=== PATIENT | male | born 1955 | race African-American/Black ===

== ENCOUNTER 2022-02-18 13:49 | Emergency (ER) | payer OTHER ==
[2022-02-18 14:29] VITALS: BP 131/79; PULSE 82; RESP 18; TEMP 99.9; BMI 33.0
== END 2022-02-18 16:48 | disposition home or self-care (01) ==
LOC: JER 13:49
DX: U07.1 COVID-19 (principal)
CPT/HCPCS: 0241U-QW; 99283-25

== ENCOUNTER 2022-03-06 15:54 | Emergency (ER) | payer OTHER ==
[2022-03-06 16:05] VITALS: BP 144/81; PULSE 78; RESP 18; TEMP 98.1; BMI 31.6
== END 2022-03-06 16:50 | disposition home or self-care (01) ==
LOC: JERFT 15:54
DX: I10 Essential (primary) hypertension (principal); Z76.0 Encounter for issue of repeat prescription
CPT/HCPCS: 99281-25

== ENCOUNTER 2022-03-30 20:51 | Observation (INO) | payer OTHER ==
[2022-03-30 20:57] VITALS: BMI 31.6
[2022-03-30] MEDS ORDERED: FAMOTIDINE 20 MG/50 ML IVPB 20 MG/50 ML MG IVPB ONE ×2 (22:15→22:31)
[2022-03-30] MEDS ORDERED: MAG HYDROX/AL HYDROX/SIMETH 30 ML UNIT-DOSE CUP PO ONE (22:15)
[2022-03-30] MEDS ORDERED: MAG HYDROX/AL HYDROX/SIMETH 30 ML UNIT-DOSE CUP ONE (22:31)
[2022-03-30 22:38] LABS: BASO % 0.6 % (0-2.0); EOS % 3.7 % (0-4.5); HEMATOCRIT 42.3 % (35.4-49); HEMOGLOBIN 14.3 GM/dL (11.7-16.9); LYMPH % 50.6 % (8-40); MCH 30.6 pg (25.7-33.7); MCHC 33.7 g/dl (32.0-35.9); MEAN CELL VOLUME 90.7 fl (80-96); MEAN PLT VOLUME 7.2 fl (7.5-11.1); MONO % 9.6 % (3.8-10.2); NEUT % 35.5 % (42.8-82.8); PLATELET COUNT 261 10^3/uL (134-434); RBC 4.67 M/mm3 (4.00-5.60); RDW 14.4 % (11.9-15.9)
[2022-03-30 22:54] LABS: INR 1.03 (0.83-1.09)
[2022-03-30 22:57] LABS: ACTIVATED PTT 27.3 SECONDS (25.2-36.5); CHLORIDE 104 mmol/L (98-107); SODIUM 138 mmol/L (136-145)
[2022-03-30 22:59] LABS: ALBUMIN 3.6 g/dl (3.4-5.0); BLOOD UREA NITROGEN 9.2 mg/dL (7-18); CALCIUM 9.8 mg/dL (8.5-10.1); GLUCOSE,RANDOM 79 mg/dL (74-106)
[2022-03-30 23:00] LABS: ANION GAP 5 MMOL/L (8-16); CO2 29 mmol/L (21-32); LIPASE 114 U/L (73-393); MAGNESIUM 2.2 mg/dL (1.8-2.4)
[2022-03-30 23:02] LABS: CREATININE 1.1 mg/dL (0.55-1.3); SGPT/ALT 30 U/L (13-61)
[2022-03-30 23:03] LABS: SGOT/AST 22 U/L (15-37)
[2022-03-30 23:04] LABS: BILIRUBIN,TOTAL 1.2 mg/dL (0.2-1)
[2022-03-30 23:05] LABS: ALK PHOS 58 U/L (45-117)
[2022-03-30] MEDS ORDERED: ASPIRIN 81 MG CHEWABLE TABLETS PO ONE (23:10)
[2022-03-30] MEDS ORDERED: ASPIRIN 81 MG CHEWABLE TABLETS ONE (23:30)
[2022-03-31] MEDS ORDERED: FAMOTIDINE 20 MG TABLET ONE (09:51)
[2022-03-31] MEDS ORDERED: HYDROCHLOROTHIAZIDE 25 MG TABLET (FP) ONE (09:51)
[2022-03-31] MEDS ORDERED: LISINOPRIL 20 MG TABLET ONE (09:51)
[2022-03-31] MEDS ORDERED: ASPIRIN 81 MG CHEWABLE TABLETS ONE (09:52)
[2022-03-31] MEDS ORDERED: HYDROCHLOROTHIAZIDE 12.5 MG CAPSULE (FP) PO SCH (10:00)
[2022-03-31] MEDS ORDERED: FAMOTIDINE 20 MG TABLET PO SCH (10:00)
[2022-03-31] MEDS ORDERED: LISINOPRIL 20 MG TABLET PO SCH (10:00)
[2022-03-31] MEDS ORDERED: ASPIRIN 81 MG CHEWABLE TABLETS PO SCH (10:00)
[2022-03-31 11:08] VITALS: TEMP 97.5
[2022-03-31] MEDS ORDERED: HEPARIN NA (PORCINE) 5,000 UNITS/ML 1ML VIAL SQ SCH (14:00)
[2022-03-31] MEDS ORDERED: HEPARIN NA (PORCINE) 5,000 UNITS/ML 1ML VIAL ONE (14:23)
[2022-03-31 18:23] VITALS: BP 144/88; PULSE 63; RESP 18
[2022-03-31] MEDS ORDERED: ATORVASTATIN CA 40 MG TABLET (FP) PO SCH (22:00)
== END 2022-03-31 18:23 | disposition home or self-care (01) ==
LOC: JER 20:51 → JERBED 03-31 00:37
PROVIDERS: ADMIT Internal Medicine; ATTEND Internal Medicine
PROC: 3E033GC Introduction of Other Therapeutic Substance into Peripheral Vein, Percutaneous Approach (ICD-10-PCS; principal; 2022-03-31)
PROC: 3E023GC Introduction of Other Therapeutic Substance into Muscle, Percutaneous Approach (ICD-10-PCS; 2022-03-31)
DX: I25.10 Atherosclerotic heart disease of native coronary artery without angina pectoris (principal); R77.8 Other specified abnormalities of plasma proteins; I11.9 Hypertensive heart disease without heart failure; Z86.16 Personal history of COVID-19; E78.5 Hyperlipidemia, unspecified; R07.89 Other chest pain
CPT/HCPCS: 0241U-QW; 36415; 71046-TC-FY; 80053; 83690; 83735; 84436; 84443; 84484; 85025; 85610; 85730; 93005; 93010; 93306-TC; 96365; 96372; 99285-25; G0378; J1644

== ENCOUNTER 2022-04-16 03:12 | Emergency (ER) | payer OTHER ==
[2022-04-16 03:28] VITALS: BP 139/85; PULSE 81; RESP 20; TEMP 98.1; BMI 30.3
== END 2022-04-16 04:03 | disposition home or self-care (01) ==
LOC: JER 03:12
DX: I10 Essential (primary) hypertension (principal); Z76.0 Encounter for issue of repeat prescription
CPT/HCPCS: 99281-25

== ENCOUNTER 2022-05-25 20:33 | Observation (INO) | payer OTHER ==
[2022-05-25 20:57] VITALS: BMI 32.3
[2022-05-25 21:44] LABS: BASO % 0.6 % (0-2.0); EOS % 3.7 % (0-4.5); HEMATOCRIT 43.9 % (35.4-49); LYMPH % 47.2 % (8-40); MCH 30.2 pg (25.7-33.7); MCHC 34.2 g/dl (32.0-35.9); MEAN CELL VOLUME 88.4 fl (80-96); MEAN PLT VOLUME 7.3 fl (7.5-11.1); MONO % 5.8 % (3.8-10.2); NEUT % 42.7 % (42.8-82.8); PLATELET COUNT 232 10^3/uL (134-434); RBC 4.96 M/mm3 (4.00-5.60); RDW 14.1 % (11.9-15.9); WHITE BLOOD COUNT 5.9 K/mm3 (4.0-10.0)
[2022-05-25 21:50] LABS: PROTHROMBIN TIME (PATIENT) 11.6 SEC (9.7-13.0)
[2022-05-25 22:05] LABS: ALBUMIN 3.7 g/dl (3.4-5.0); BLOOD UREA NITROGEN 13.7 mg/dL (7-18); CALCIUM 9.6 mg/dL (8.5-10.1)
[2022-05-25 22:08] LABS: CREATININE 1.1 mg/dL (0.55-1.3)
[2022-05-25 22:10] LABS: BILIRUBIN,TOTAL 0.8 mg/dL (0.2-1); TOT PROT 7.3 g/dl (6.4-8.2)
[2022-05-25 22:13] LABS: N-TERMINAL BNP 47.2 pg/ml (5-125)
[2022-05-26 06:45] LABS: BASO % 0.9 % (0-2.0); EOS % 5.4 % (0-4.5); HEMATOCRIT 38.4 % (35.4-49); HEMOGLOBIN 13.7 GM/dL (11.7-16.9); LYMPH % 50.6 % (8-40); MCH 31.4 pg (25.7-33.7); MCHC 35.8 g/dl (32.0-35.9); MEAN CELL VOLUME 87.5 fl (80-96); MEAN PLT VOLUME 8.1 fl (7.5-11.1); MONO % 7.2 % (3.8-10.2); NEUT % 35.9 % (42.8-82.8); PLATELET COUNT 212 10^3/uL (134-434); RBC 4.38 M/mm3 (4.00-5.60); RDW 13.9 % (11.9-15.9); WHITE BLOOD COUNT 5.8 K/mm3 (4.0-10.0)
[2022-05-26 07:00] LABS: ALBUMIN 3.3 g/dl (3.4-5.0); BLOOD UREA NITROGEN 10.8 mg/dL (7-18); CALCIUM 9.3 mg/dL (8.5-10.1); MAGNESIUM 2.3 mg/dL (1.8-2.4)
[2022-05-26 07:03] LABS: CREATININE 0.9 mg/dL (0.55-1.3); PHOSPHOROUS 2.8 mg/dL (2.5-4.9)
[2022-05-26 07:04] LABS: BILIRUBIN,TOTAL 1.1 mg/dL (0.2-1); TOT PROT 6.5 g/dl (6.4-8.2)
[2022-05-26] MEDS ORDERED: ENOXAPARIN NA (PORCINE) 40 MG/0.4 ML DISP.SYRIN SQ ONE (08:51)
[2022-05-26] MEDS: ENOXAPARIN NA (PORCINE) 40 MG/0.4 ML DISP.SYRIN SQ SCH (08:54)
[2022-05-26 10:25] LABS: URINE APPEARANCE CLEAR; URINE BILIRUBIN NEGATIVE (NEGATIVE); URINE COLOR YELLOW; URINE GLUCOSE (UA) NEGATIVE (NEGATIVE); URINE KETONE NEGATIVE (NEGATIVE); URINE LEUK ESTERASE NEGATIVE (NEGATIVE); URINE NITRITE NEGATIVE (NEGATIVE); URINE PROTEIN NEGATIVE (NEGATIVE); URINE UROBILINOGEN 0.2 mg/dL (0.2-1.0)
[2022-05-26] MEDS ORDERED: ATORVASTATIN CA 80 MG TABLET (FP) PO ONE (11:08)
[2022-05-26] MEDS ORDERED: ATORVASTATIN CA 80 MG TABLET (FP) ONE (11:49)
[2022-05-26] MEDS ORDERED: ASPIRIN 81 MG CHEWABLE TABLETS ONE (11:49)
[2022-05-26] MEDS: ASPIRIN 81 MG CHEWABLE TABLETS PO SCH (11:54)
[2022-05-27] MEDS: ASPIRIN 81 MG CHEWABLE TABLETS PO SCH (09:01)
[2022-05-27] MEDS: ENOXAPARIN NA (PORCINE) 40 MG/0.4 ML DISP.SYRIN SQ SCH (09:01)
[2022-05-27] MEDS: CLOPIDOGREL BISULFATE 75 MG TABLET (FP) PO SCH (09:18)
[2022-05-27] MEDS: ATORVASTATIN CA 40 MG TABLET (FP) PO SCH (22:37)
[2022-05-28] MEDS: ASPIRIN 81 MG CHEWABLE TABLETS PO SCH (09:43)
[2022-05-28] MEDS: ENOXAPARIN NA (PORCINE) 40 MG/0.4 ML DISP.SYRIN SQ SCH (09:43)
[2022-05-28] MEDS: CLOPIDOGREL BISULFATE 75 MG TABLET (FP) PO SCH (09:43)
[2022-05-28] MEDS: FAMOTIDINE 20 MG TABLET PO SCH ×2 (15:01→22:16)
[2022-05-28] MEDS: ATORVASTATIN CA 40 MG TABLET (FP) PO SCH (22:16)
[2022-05-29 00:59] VITALS: RESP 20
[2022-05-29 08:20] LABS: HEMATOCRIT 37.5 % (35.4-49); HEMOGLOBIN 13.1 GM/dL (11.7-16.9); MCH 31.1 pg (25.7-33.7); MEAN CELL VOLUME 88.9 fl (80-96); MEAN PLT VOLUME 7.9 fl (7.5-11.1); PLATELET COUNT 221 10^3/uL (134-434); RBC 4.22 M/mm3 (4.00-5.60); WHITE BLOOD COUNT 5.8 K/mm3 (4.0-10.0)
[2022-05-29 08:47] LABS: ALBUMIN 2.9 g/dl (3.4-5.0); BLOOD UREA NITROGEN 11.5 mg/dL (7-18)
[2022-05-29 08:48] LABS: CALCIUM 8.7 mg/dL (8.5-10.1); MAGNESIUM 2.1 mg/dL (1.8-2.4)
[2022-05-29 08:50] LABS: CREATININE 1.1 mg/dL (0.55-1.3); PHOSPHOROUS 2.9 mg/dL (2.5-4.9)
[2022-05-29 08:52] LABS: BILIRUBIN,TOTAL 0.7 mg/dL (0.2-1); TOT PROT 6.1 g/dl (6.4-8.2)
[2022-05-29] MEDS: FAMOTIDINE 20 MG TABLET PO SCH (12:43)
[2022-05-29] MEDS: CLOPIDOGREL BISULFATE 75 MG TABLET (FP) PO SCH (12:43)
[2022-05-29] MEDS: ENOXAPARIN NA (PORCINE) 40 MG/0.4 ML DISP.SYRIN SQ SCH (12:43)
[2022-05-29] MEDS: ASPIRIN 81 MG CHEWABLE TABLETS PO SCH (12:43)
[2022-05-29 14:47] VITALS: BP 135/85; PULSE 65; TEMP 98.6
== END 2022-05-29 16:49 | disposition home or self-care (01) ==
LOC: JER 20:33 → JERBED 23:10 → J4W 05-26 23:25
PROVIDERS: ADMIT Internal Medicine; ATTEND Internal Medicine
PROC: 3E023GC Introduction of Other Therapeutic Substance into Muscle, Percutaneous Approach (ICD-10-PCS; principal; 2022-05-25)
DX: I25.10 Atherosclerotic heart disease of native coronary artery without angina pectoris (principal); I11.9 Hypertensive heart disease without heart failure; E78.5 Hyperlipidemia, unspecified; I10 Essential (primary) hypertension; E66.8 Other obesity; Z68.32 Body mass index [BMI] 32.0-32.9, adult; R77.8 Other specified abnormalities of plasma proteins; F12.10 Cannabis abuse, uncomplicated; Z86.16 Personal history of COVID-19
CPT/HCPCS: 0241U-QW; 36415; 71046-TC-FY; 78452-TC; 80053; 80061; 81003; 83735; 83880; 84100; 84443; 84484; 85025; 85027; 85610; 85730; 86850; 86900; 86901; 93005; 93010; 93017; 96372; 99285-25; A9502; G0378

== ENCOUNTER 2022-08-08 22:24 | Observation (INO) | payer OTHER ==
[2022-08-09 01:51] LABS: BASO % 0.9 % (0-2.0); EOS % 5.6 % (0-4.5); HEMATOCRIT 44.2 % (35.4-49); HEMOGLOBIN 15.2 GM/dL (11.7-16.9); MCH 30.5 pg (25.7-33.7); MCHC 34.5 g/dl (32.0-35.9); MEAN CELL VOLUME 88.5 fl (80-96); MEAN PLT VOLUME 7.2 fl (7.5-11.1); MONO % 6.5 % (3.8-10.2); PLATELET COUNT 226 10^3/uL (134-434); RBC 4.99 M/mm3 (4.00-5.60); RDW 13.8 % (11.9-15.9); WHITE BLOOD COUNT 6.9 K/mm3 (4.0-10.0)
[2022-08-09 01:59] LABS: INR 1.06 (0.83-1.09); PROTHROMBIN TIME (PATIENT) 12.3 SEC (9.7-13.0)
[2022-08-09 02:01] LABS: ACTIVATED PTT 27.2 SECONDS (25.2-36.5)
[2022-08-09 02:16] LABS: POTASSIUM 4.2 mmol/L (3.5-5.1)
[2022-08-09 02:18] LABS: BLOOD UREA NITROGEN 14.2 mg/dL (7-18); CALCIUM 9.6 mg/dL (8.5-10.1)
[2022-08-09 02:19] LABS: ALBUMIN 3.6 g/dl (3.4-5.0)
[2022-08-09 02:23] LABS: BILIRUBIN,TOTAL 0.9 mg/dL (0.2-1); TOT PROT 7.2 g/dl (6.4-8.2)
[2022-08-09 06:18] VITALS: PULSE 50; BMI 33.0
[2022-08-09 07:32] LABS: HEMATOCRIT 42.5 % (35.4-49); HEMOGLOBIN 14.3 GM/dL (11.7-16.9); MCH 30.6 pg (25.7-33.7); MCHC 33.7 g/dl (32.0-35.9); MEAN CELL VOLUME 90.8 fl (80-96); MEAN PLT VOLUME 7.7 fl (7.5-11.1); PLATELET COUNT 208 10^3/uL (134-434); RBC 4.67 M/mm3 (4.00-5.60); RDW 13.7 % (11.9-15.9); WHITE BLOOD COUNT 5.6 K/mm3 (4.0-10.0)
[2022-08-09 08:00] LABS: POTASSIUM 4.2 mmol/L (3.5-5.1)
[2022-08-09 08:02] LABS: CALCIUM 9.6 mg/dL (8.5-10.1)
[2022-08-09 08:03] LABS: ALBUMIN 3.4 g/dl (3.4-5.0); BLOOD UREA NITROGEN 12.7 mg/dL (7-18)
[2022-08-09 08:06] LABS: CREATININE 1.1 mg/dL (0.55-1.3)
[2022-08-09 08:07] LABS: TOT PROT 6.8 g/dl (6.4-8.2)
[2022-08-09 08:08] LABS: BILIRUBIN,TOTAL 0.9 mg/dL (0.2-1)
[2022-08-09] MEDS ORDERED: LISINOPRIL 20 MG TABLET PO SCH (10:00)
[2022-08-09] MEDS ORDERED: ENOXAPARIN NA (PORCINE) 40 MG/0.4 ML DISP.SYRIN SQ SCH (10:00)
[2022-08-09] MEDS ORDERED: HYDROCHLOROTHIAZIDE 12.5 MG CAPSULE (FP) PO SCH (10:00)
[2022-08-09] MEDS ORDERED: PANTOPRAZOLE SODIUM 40 MG VIAL IVPUSH SCH (10:00)
[2022-08-09] MEDS ORDERED: ASPIRIN COATED 81 MG TABLET.EC PO SCH (10:00)
[2022-08-09 10:29] VITALS: BP 127/72; RESP 20; TEMP 97.3
[2022-08-09] MEDS ORDERED: ATORVASTATIN CA 40 MG TABLET (FP) PO SCH (22:00)
== END 2022-08-09 15:50 | disposition home or self-care (01) ==
LOC: JER 22:24 → INTOOBSV 08-09 02:46 → UNDOADMOB 08-09 02:46 → JERBED 08-09 02:46 → J4W 08-09 05:31 → JERBED 08-09 05:31 → J4W 08-09 09:28 → JERBED 08-09 09:28
PROVIDERS: ADMIT Internal Medicine; ATTEND Internal Medicine
PROC: 3E023GC Introduction of Other Therapeutic Substance into Muscle, Percutaneous Approach (ICD-10-PCS; principal; 2022-08-09)
PROC: 3E033GC Introduction of Other Therapeutic Substance into Peripheral Vein, Percutaneous Approach (ICD-10-PCS; 2022-08-09)
DX: I25.811 Atherosclerosis of native coronary artery of transplanted heart without angina pectoris (principal); I11.9 Hypertensive heart disease without heart failure; R07.9 Chest pain, unspecified; K21.9 Gastro-esophageal reflux disease without esophagitis; I10 Essential (primary) hypertension; E78.5 Hyperlipidemia, unspecified; Z29.8 Encounter for other specified prophylactic measures
CPT/HCPCS: 36415; 71045-TC-FY; 80053; 84484; 85025; 85027; 85610; 85730; 93005; 93010; 96372; 96374; 99285-25; G0378

== ENCOUNTER 2022-09-29 00:45 | Observation (INO) | payer OTHER ==
[2022-09-29] MEDS ORDERED: ACETAMINOPHEN 1000 MG/100 ML BAG IVPB ONE (01:42)
[2022-09-29] MEDS ORDERED: KETOROLAC TROMETHAMINE 15 MG/ML VIAL IVPUSH ONE (01:43)
[2022-09-29] MEDS ORDERED: KETOROLAC TROMETHAMINE 15 MG/ML VIAL ONE (01:57)
[2022-09-29] MEDS ORDERED: ACETAMINOPHEN INJECTION 100 ML IVPB ONE (01:57)
[2022-09-29 02:16] LABS: HEMOGLOBIN 14.9 GM/dL (11.7-16.9); MCH 30.7 pg (25.7-33.7); MCHC 34.6 g/dl (32.0-35.9); MEAN CELL VOLUME 88.7 fl (80-96); PLATELET COUNT 218 10^3/uL (134-434); RBC 4.85 M/mm3 (4.00-5.60); WHITE BLOOD COUNT 8.3 K/mm3 (4.0-10.0)
[2022-09-29 02:24] LABS: INR 1.05 (0.83-1.09); PROTHROMBIN TIME (PATIENT) 12.2 SEC (9.7-13.0)
[2022-09-29 02:26] LABS: ACTIVATED PTT 27.8 SECONDS (25.2-36.5)
[2022-09-29 02:45] LABS: POTASSIUM 4.1 mmol/L (3.5-5.1)
[2022-09-29 02:47] LABS: ALBUMIN 3.7 g/dl (3.4-5.0); CALCIUM 9.6 mg/dL (8.5-10.1)
[2022-09-29 02:50] LABS: CREATININE 1.4 mg/dL (0.55-1.3)
[2022-09-29 02:52] LABS: TOT PROT 6.9 g/dl (6.4-8.2)
[2022-09-29 03:05] LABS: ANISOCYTOSIS 1+; MACROCYTOSIS 0
[2022-09-29] MEDS ORDERED: HEPARIN NA (PORCINE) 5,000 UNITS/ML 1ML VIAL SQ ONE (06:23)
[2022-09-29] MEDS ORDERED: SODIUM CHLORIDE 1,000 ML IV SCH (06:45)
[2022-09-29 06:51] VITALS: BMI 33.4
[2022-09-29] MEDS ORDERED: CLOPIDOGREL BISULFATE 300 MG TABLET PO ONE (08:15)
[2022-09-29] MEDS: amLODIPine BESYLATE 5 MG TABLET (FP) PO SCH (09:29)
[2022-09-29] MEDS: ASPIRIN COATED 81 MG TABLET.EC PO SCH (09:29)
[2022-09-29] MEDS: ISOSORBIDE MONONITRATE 30 MG TAB.SR.24H (FP) PO SCH (09:29)
[2022-09-29] MEDS: LISINOPRIL 20 MG TABLET PO SCH (09:29)
[2022-09-29] MEDS ORDERED: CLOPIDOGREL BISULFATE 75 MG TABLET (FP) PO SCH (10:00)
[2022-09-29] MEDS: ATORVASTATIN CA 40 MG TABLET (FP) PO SCH (21:59)
[2022-09-30 08:14] LABS: HEMATOCRIT 40.2 % (35.4-49); HEMOGLOBIN 13.5 GM/dL (11.7-16.9); MCH 30.4 pg (25.7-33.7); MCHC 33.7 g/dl (32.0-35.9); MEAN CELL VOLUME 90.2 fl (80-96); MEAN PLT VOLUME 8.1 fl (7.5-11.1); PLATELET COUNT 206 10^3/uL (134-434); RBC 4.46 M/mm3 (4.00-5.60); RDW 13.6 % (11.9-15.9); WHITE BLOOD COUNT 5.7 K/mm3 (4.0-10.0)
[2022-09-30 08:36] LABS: POTASSIUM 4.2 mmol/L (3.5-5.1)
[2022-09-30 08:43] LABS: CALCIUM 8.9 mg/dL (8.5-10.1)
[2022-09-30 08:44] LABS: ALBUMIN 3.2 g/dl (3.4-5.0); BLOOD UREA NITROGEN 15.1 mg/dL (7-18); MAGNESIUM 2.2 mg/dL (1.8-2.4)
[2022-09-30 08:45] LABS: CREATININE 1.1 mg/dL (0.55-1.3); PHOSPHOROUS 3.5 mg/dL (2.5-4.9)
[2022-09-30 08:46] LABS: BILIRUBIN,TOTAL 0.7 mg/dL (0.2-1); TOT PROT 6.4 g/dl (6.4-8.2)
[2022-09-30] MEDS: CLOPIDOGREL BISULFATE 75 MG TABLET (FP) PO SCH (09:27)
[2022-09-30] MEDS: ISOSORBIDE MONONITRATE 30 MG TAB.SR.24H (FP) PO SCH (09:27)
[2022-09-30] MEDS: amLODIPine BESYLATE 5 MG TABLET (FP) PO SCH (09:28)
[2022-09-30] MEDS: ASPIRIN COATED 81 MG TABLET.EC PO SCH (09:28)
[2022-09-30] MEDS: LISINOPRIL 20 MG TABLET PO SCH (09:28)
[2022-09-30 13:19] LABS: PH,URINE 5.5 (5.0-8.0); URINE APPEARANCE CLEAR; URINE BILIRUBIN NEGATIVE (NEGATIVE); URINE COLOR YELLOW; URINE GLUCOSE (UA) NEGATIVE (NEGATIVE); URINE KETONE NEGATIVE (NEGATIVE); URINE LEUK ESTERASE NEGATIVE (NEGATIVE); URINE NITRITE NEGATIVE (NEGATIVE); URINE PROTEIN NEGATIVE (NEGATIVE); URINE UROBILINOGEN 0.2 mg/dL (0.2-1.0)
[2022-09-30] MEDS: ATORVASTATIN CA 40 MG TABLET (FP) PO SCH (21:36)
[2022-10-01] MEDS: CLOPIDOGREL BISULFATE 75 MG TABLET (FP) PO SCH (09:25)
[2022-10-01] MEDS: ISOSORBIDE MONONITRATE 30 MG TAB.SR.24H (FP) PO SCH (09:26)
[2022-10-01] MEDS: amLODIPine BESYLATE 5 MG TABLET (FP) PO SCH (09:26)
[2022-10-01] MEDS: ASPIRIN COATED 81 MG TABLET.EC PO SCH (09:27)
[2022-10-01] MEDS: LISINOPRIL 20 MG TABLET PO SCH (09:28)
[2022-10-01] MEDS: ATORVASTATIN CA 40 MG TABLET (FP) PO SCH (21:05)
[2022-10-01 21:20] VITALS: BP 143/83; PULSE 82; RESP 18; TEMP 98
== END 2022-10-01 21:30 | disposition short-term general hospital (02) ==
LOC: JER 00:45 → JERBED 03:49 → J4W 06:42
PROVIDERS: ADMIT Student in an Organized Health Care Education/Training Program; ATTEND Internal Medicine
PROC: 3E033NZ Introduction of Analgesics, Hypnotics, Sedatives into Peripheral Vein, Percutaneous Approach (ICD-10-PCS; principal; 2022-09-29)
PROC: 3E023GC Introduction of Other Therapeutic Substance into Muscle, Percutaneous Approach (ICD-10-PCS; 2022-09-29)
PROC: 3E0333Z Introduction of Anti-inflammatory into Peripheral Vein, Percutaneous Approach (ICD-10-PCS; 2022-09-29)
PROC: 3E0337Z Introduction of Electrolytic and Water Balance Substance into Peripheral Vein, Percutaneous Approach (ICD-10-PCS; 2022-09-29)
DX: R07.89 Other chest pain (principal); I25.10 Atherosclerotic heart disease of native coronary artery without angina pectoris; I10 Essential (primary) hypertension; E78.5 Hyperlipidemia, unspecified; R00.1 Bradycardia, unspecified; Z87.891 Personal history of nicotine dependence; R77.8 Other specified abnormalities of plasma proteins; Z95.5 Presence of coronary angioplasty implant and graft; F12.10 Cannabis abuse, uncomplicated; E66.8 Other obesity; Z68.33 Body mass index [BMI] 33.0-33.9, adult
CPT/HCPCS: 36415; 71045-TC-FY; 80053; 81003; 83735; 84100; 84484; 85025; 85027; 85610; 85730; 87635; 93005; 93010; 96361; 96372; 96374; 96375; 99285-25; G0378; J1644

== ENCOUNTER 2023-01-01 03:55 | Observation (INO) | payer OTHER ==
[2023-01-01 04:06] VITALS: BMI 32.7
[2023-01-01] MEDS ORDERED: ACETAMINOPHEN 1000 MG/100 ML BAG IVPB ONE (04:32)
[2023-01-01 04:40] LABS: EOS % 6.3 % (0-4.5); HEMATOCRIT 42.8 % (35.4-49); HEMOGLOBIN 14.6 GM/dL (11.7-16.9); LYMPH % 52.7 % (8-40); MCH 30.5 pg (25.7-33.7); MCHC 34.3 g/dl (32.0-35.9); MEAN CELL VOLUME 89.1 fl (80-96); MEAN PLT VOLUME 7.1 fl (7.5-11.1); MONO % 6.8 % (3.8-10.2); NEUT % 33.2 % (42.8-82.8); PLATELET COUNT 246 10^3/uL (134-434); RDW 14.3 % (11.9-15.9); WHITE BLOOD COUNT 6.7 K/mm3 (4.0-10.0)
[2023-01-01 04:46] LABS: INR 1.03 (0.83-1.09); PROTHROMBIN TIME (PATIENT) 11.9 SEC (9.7-13.0)
[2023-01-01 04:49] LABS: ACTIVATED PTT 28.6 SECONDS (25.2-36.5)
[2023-01-01] MEDS ORDERED: ACETAMINOPHEN INJECTION 100 ML IVPB ONE (04:57)
[2023-01-01 05:28] LABS: POTASSIUM 3.8 mmol/L (3.5-5.1)
[2023-01-01 05:30] LABS: ALBUMIN 3.6 g/dl (3.4-5.0); BLOOD UREA NITROGEN 14.2 mg/dL (7-18); CALCIUM 9.5 mg/dL (8.5-10.1)
[2023-01-01 05:33] LABS: CREATININE 1.1 mg/dL (0.55-1.3)
[2023-01-01 05:35] LABS: TOT PROT 7.2 g/dl (6.4-8.2)
[2023-01-01] MEDS ORDERED: ENOXAPARIN NA (PORCINE) 40 MG/0.4 ML DISP.SYRIN SQ SCH (10:00)
[2023-01-01] MEDS ORDERED: ENOXAPARIN NA (PORCINE) 40 MG/0.4 ML DISP.SYRIN SQ ONE (10:20)
[2023-01-01] MEDS ORDERED: ACETAMINOPHEN 1000 MG/100 ML BAG IVPB PRN (10:31)
[2023-01-01 10:36] VITALS: BP 122/87; PULSE 56; RESP 14; TEMP 97.9
[2023-01-01] MEDS ORDERED: LISINOPRIL 20 MG TABLET PO SCH (10:45)
[2023-01-01] MEDS ORDERED: amLODIPine BESYLATE 5 MG TABLET (FP) PO SCH (10:45)
[2023-01-01] MEDS ORDERED: SODIUM CHLORIDE 1,000 ML IV SCH (10:45)
[2023-01-01] MEDS ORDERED: amLODIPine BESYLATE 5 MG TABLET (FP) ONE (11:01)
[2023-01-01] MEDS ORDERED: LISINOPRIL 20 MG TABLET ONE (11:02)
[2023-01-01] MEDS ORDERED: LIDOCAINE 4% PATCH TP ONE ×2 (11:41→12:30)
[2023-01-01] MEDS ORDERED: FAMOTIDINE 20 MG TABLET PO SCH (12:00)
[2023-01-01] MEDS ORDERED: ISOSORBIDE MONONITRATE 30 MG TAB.SR.24H (FP) PO SCH (13:30)
[2023-01-01] MEDS ORDERED: ATORVASTATIN CA 80 MG TABLET (FP) PO SCH (22:00)
[2023-01-01] MEDS ORDERED: ATORVASTATIN CA 40 MG TABLET (FP) PO SCH (22:00)
[2023-01-01] MEDS ORDERED: LIDOCAINE PATCH REMOVAL MC SCH (22:00)
[2023-01-02] MEDS ORDERED: ASPIRIN COATED 81 MG TABLET.EC PO SCH (10:00)
== END 2023-01-01 14:22 | disposition home or self-care (01) ==
LOC: JER 03:55 → JERBED 06:27
PROVIDERS: ADMIT Internal Medicine; ATTEND Internal Medicine
PROC: 3E033NZ Introduction of Analgesics, Hypnotics, Sedatives into Peripheral Vein, Percutaneous Approach (ICD-10-PCS; principal; 2023-01-01)
PROC: 3E023GC Introduction of Other Therapeutic Substance into Muscle, Percutaneous Approach (ICD-10-PCS; 2023-01-01)
DX: I24.9 Acute ischemic heart disease, unspecified (principal); R07.9 Chest pain, unspecified; I25.10 Atherosclerotic heart disease of native coronary artery without angina pectoris; I11.0 Hypertensive heart disease with heart failure; E78.5 Hyperlipidemia, unspecified; E66.9 Obesity, unspecified
CPT/HCPCS: 36415; 71046-TC-FY; 80053; 80061; 83036; 84484; 85025; 85610; 85730; 93005; 93010; 96372; 96374; 99285-25; G0378

== ENCOUNTER 2023-02-17 21:17 | Observation (INO) | payer OTHER ==
[2023-02-17] MEDS ORDERED: ASPIRIN 81 MG CHEWABLE TABLETS PO ONE (22:04)
[2023-02-17] MEDS ORDERED: ACETAMINOPHEN 1000 MG/100 ML BAG IVPB ONE (22:04)
[2023-02-17] MEDS ORDERED: FAMOTIDINE 20 MG/50 ML IVPB 20 MG/50 ML MG IVPB ONE ×2 (22:04→22:25)
[2023-02-17] MEDS ORDERED: ASPIRIN 81 MG CHEWABLE TABLETS ONE (22:25)
[2023-02-17] MEDS ORDERED: ACETAMINOPHEN INJECTION 100 ML IVPB ONE (22:25)
[2023-02-17 22:49] LABS: BASO % 1.1 % (0-2.0); EOS % 4.1 % (0-4.5); HEMATOCRIT 42.7 % (35.4-49); HEMOGLOBIN 14.4 GM/dL (11.7-16.9); MCHC 33.6 g/dl (32.0-35.9); MEAN CELL VOLUME 89.3 fl (80-96); MEAN PLT VOLUME 7.2 fl (7.5-11.1); MONO % 6.6 % (3.8-10.2); NEUT % 49.2 % (42.8-82.8); PLATELET COUNT 228 10^3/uL (134-434); RBC 4.78 M/mm3 (4.00-5.60); RDW 14.1 % (11.9-15.9); WHITE BLOOD COUNT 4.7 K/mm3 (4.0-10.0)
[2023-02-17 23:14] LABS: POTASSIUM 4.4 mmol/L (3.5-5.1)
[2023-02-17 23:16] LABS: CALCIUM 9.8 mg/dL (8.5-10.1)
[2023-02-17 23:17] LABS: ALBUMIN 3.8 g/dl (3.4-5.0); BLOOD UREA NITROGEN 14.2 mg/dL (7-18)
[2023-02-17 23:20] LABS: CREATININE 1.2 mg/dL (0.55-1.3)
[2023-02-17 23:21] LABS: TOT PROT 7.6 g/dl (6.4-8.2)
[2023-02-17 23:22] LABS: BILIRUBIN,TOTAL 0.8 mg/dL (0.2-1)
[2023-02-18 00:50] LABS: URINE APPEARANCE CLEAR; URINE BILIRUBIN NEGATIVE (NEGATIVE); URINE COLOR YELLOW; URINE GLUCOSE (UA) NEGATIVE (NEGATIVE); URINE KETONE NEGATIVE (NEGATIVE); URINE LEUK ESTERASE NEGATIVE (NEGATIVE); URINE NITRITE NEGATIVE (NEGATIVE); URINE PROTEIN NEGATIVE (NEGATIVE)
[2023-02-18 06:47] LABS: BASO % 0.9 % (0-2.0); EOS % 7.1 % (0-4.5); HEMATOCRIT 39.4 % (35.4-49); HEMOGLOBIN 13.5 GM/dL (11.7-16.9); MCH 30.6 pg (25.7-33.7); MCHC 34.3 g/dl (32.0-35.9); MEAN CELL VOLUME 89.1 fl (80-96); MEAN PLT VOLUME 7.7 fl (7.5-11.1); MONO % 7.5 % (3.8-10.2); NEUT % 29.5 % (42.8-82.8); PLATELET COUNT 214 10^3/uL (134-434); RBC 4.43 M/mm3 (4.00-5.60); RDW 14.1 % (11.9-15.9); WHITE BLOOD COUNT 5.7 K/mm3 (4.0-10.0)
[2023-02-18 07:07] LABS: POTASSIUM 4.1 mmol/L (3.5-5.1)
[2023-02-18 07:11] LABS: CALCIUM 9.3 mg/dL (8.5-10.1)
[2023-02-18 07:14] LABS: ALBUMIN 3.3 g/dl (3.4-5.0)
[2023-02-18 07:15] LABS: BLOOD UREA NITROGEN 12.6 mg/dL (7-18)
[2023-02-18 07:17] LABS: PHOSPHOROUS 3.4 mg/dL (2.5-4.9)
[2023-02-18 07:20] LABS: TOT PROT 6.6 g/dl (6.4-8.2)
[2023-02-18 08:34] LABS: BILIRUBIN,TOTAL 0.8 mg/dL (0.2-1)
[2023-02-18] MEDS ORDERED: ENOXAPARIN NA (PORCINE) 40 MG/0.4 ML DISP.SYRIN SQ ONE (09:30)
[2023-02-18] MEDS ORDERED: LISINOPRIL 20 MG TABLET ONE (09:30)
[2023-02-18] MEDS ORDERED: ASPIRIN 81 MG CHEWABLE TABLETS ONE (09:30)
[2023-02-18] MEDS ORDERED: PANTOPRAZOLE 40 MG TABLET PO ONE (09:30)
[2023-02-18] MEDS: ENOXAPARIN NA (PORCINE) 40 MG/0.4 ML DISP.SYRIN SQ SCH (09:44)
[2023-02-18] MEDS: amLODIPine BESYLATE 5 MG TABLET (FP) PO SCH (09:44)
[2023-02-18] MEDS: ASPIRIN COATED 81 MG TABLET.EC PO SCH (09:44)
[2023-02-18] MEDS: PANTOPRAZOLE 40 MG TABLET PO SCH (09:45)
[2023-02-18] MEDS: LISINOPRIL 20 MG TABLET PO SCH (09:45)
[2023-02-18 16:46] VITALS: BMI 32.0
[2023-02-18] MEDS ORDERED: ATORVASTATIN CA 80 MG TABLET (FP) PO SCH (22:00)
[2023-02-19 08:33] LABS: BASO % 0.5 % (0-2.0); EOS % 7.6 % (0-4.5); HEMATOCRIT 42.9 % (35.4-49); HEMOGLOBIN 14.2 GM/dL (11.7-16.9); MCHC 33.1 g/dl (32.0-35.9); MEAN CELL VOLUME 90.5 fl (80-96); MEAN PLT VOLUME 7.8 fl (7.5-11.1); MONO % 6.8 % (3.8-10.2); NEUT % 32.1 % (42.8-82.8); PLATELET COUNT 216 10^3/uL (134-434); RBC 4.74 M/mm3 (4.00-5.60); RDW 13.9 % (11.9-15.9); WHITE BLOOD COUNT 5.6 K/mm3 (4.0-10.0)
[2023-02-19 09:00] LABS: POTASSIUM 4.6 mmol/L (3.5-5.1)
[2023-02-19] MEDS: ASPIRIN COATED 81 MG TABLET.EC PO SCH (09:08)
[2023-02-19] MEDS: amLODIPine BESYLATE 5 MG TABLET (FP) PO SCH (09:08)
[2023-02-19] MEDS: ENOXAPARIN NA (PORCINE) 40 MG/0.4 ML DISP.SYRIN SQ SCH (09:08)
[2023-02-19 09:09] LABS: ALBUMIN 3.4 g/dl (3.4-5.0); BLOOD UREA NITROGEN 12.4 mg/dL (7-18)
[2023-02-19] MEDS: LISINOPRIL 20 MG TABLET PO SCH (09:09)
[2023-02-19] MEDS: PANTOPRAZOLE 40 MG TABLET PO SCH (09:09)
[2023-02-19 09:10] LABS: TOT PROT 6.7 g/dl (6.4-8.2)
[2023-02-19 09:11] LABS: CALCIUM 9.8 mg/dL (8.5-10.1)
[2023-02-19 13:51] VITALS: BP 144/70; PULSE 88; RESP 20; TEMP 98.1
== END 2023-02-19 14:00 | disposition home or self-care (01) ==
LOC: JER 21:17 → JERBED 23:05 → J4W 02-18 16:31
PROVIDERS: ADMIT Internal Medicine
PROC: 3E033NZ Introduction of Analgesics, Hypnotics, Sedatives into Peripheral Vein, Percutaneous Approach (ICD-10-PCS; principal; 2023-02-17)
DX: I25.110 Atherosclerotic heart disease of native coronary artery with unstable angina pectoris (principal); I11.0 Hypertensive heart disease with heart failure; F12.90 Cannabis use, unspecified, uncomplicated; K21.9 Gastro-esophageal reflux disease without esophagitis; E87.3 Alkalosis; E78.5 Hyperlipidemia, unspecified; I25.2 Old myocardial infarction; E66.9 Obesity, unspecified; Z95.5 Presence of coronary angioplasty implant and graft; R07.89 Other chest pain; Z29.89 Encounter for other specified prophylactic measures; Z86.16 Personal history of COVID-19; R00.1 Bradycardia, unspecified; Z87.891 Personal history of nicotine dependence
CPT/HCPCS: 0241U-QW; 36415; 71045-TC-FY; 80053; 81003; 83735; 83880; 84100; 84155; 84165; 84484; 85025; 87086; 93005; 93010; 96365; 96372; 96375; 99285-25; G0378

== ENCOUNTER 2023-03-01 00:21 | Observation (INO) | payer OTHER ==
[2023-03-01] MEDS: ACETAMINOPHEN 500 MG TABLET (FP) PO ONE ×2 (01:19→01:34)
[2023-03-01] MEDS ORDERED: ACETAMINOPHEN 1000 MG/100 ML BAG IVPB ONE (01:28)
[2023-03-01] MEDS ORDERED: MAG HYDROX/AL HYDROX/SIMETH 30 ML UNIT-DOSE CUP PO ONE (01:28)
[2023-03-01] MEDS ORDERED: FAMOTIDINE 20 MG/50 ML IVPB 20 MG/50 ML MG IVPB ONE ×2 (01:28→02:21)
[2023-03-01 01:30] LABS: EOS % 5.4 % (0-4.5); HEMATOCRIT 43.5 % (35.4-49); HEMOGLOBIN 14.6 GM/dL (11.7-16.9); LYMPH % 38.3 % (8-40); MCH 29.8 pg (25.7-33.7); MCHC 33.5 g/dl (32.0-35.9); MEAN PLT VOLUME 7.9 fl (7.5-11.1); MONO % 9.2 % (3.8-10.2); NEUT % 46.1 % (42.8-82.8); PLATELET COUNT 217 10^3/uL (134-434); RBC 4.89 M/mm3 (4.00-5.60); RDW 13.9 % (11.9-15.9); WHITE BLOOD COUNT 5.6 K/mm3 (4.0-10.0)
[2023-03-01 01:41] LABS: INR 1.07 (0.83-1.09); PROTHROMBIN TIME (PATIENT) 12.4 SEC (9.7-13.0)
[2023-03-01 01:44] LABS: ACTIVATED PTT 24.3 SECONDS (25.2-36.5)
[2023-03-01 01:50] LABS: CHLORIDE 108 mmol/L (98-107); SODIUM 142 mmol/L (136-145)
[2023-03-01 01:52] LABS: CALCIUM 9.6 mg/dL (8.5-10.1)
[2023-03-01 01:53] LABS: ALBUMIN 3.3 g/dl (3.4-5.0); ANION GAP 5 mmol/L (4-13); BLOOD UREA NITROGEN 10.1 mg/dL (7-18); CO2 29 mmol/L (21-32); GLUCOSE,RANDOM 115 mg/dL (74-106)
[2023-03-01 01:56] LABS: CREATININE 1.1 mg/dL (0.55-1.3); SGOT/AST 21 U/L (15-37); SGPT/ALT 28 U/L (13-61)
[2023-03-01 01:58] LABS: BILIRUBIN,TOTAL 0.6 mg/dL (0.2-1); TOT PROT 7.1 g/dl (6.4-8.2)
[2023-03-01 01:59] LABS: ALK PHOS 68 U/L (45-117)
[2023-03-01 02:01] LABS: N-TERMINAL BNP 18.1 pg/ml (5-125)
[2023-03-01] MEDS ORDERED: ACETAMINOPHEN INJECTION 100 ML IVPB ONE ×2 (02:20→09:58)
[2023-03-01] MEDS ORDERED: MAG HYDROX/AL HYDROX/SIMETH 30 ML UNIT-DOSE CUP ONE (02:21)
[2023-03-01] MEDS ORDERED: ACETAMINOPHEN 1000 MG/100 ML BAG IVPB PRN (08:21)
[2023-03-01] MEDS ORDERED: PANTOPRAZOLE 40 MG TABLET PO ONE (09:58)
[2023-03-01] MEDS ORDERED: amLODIPine BESYLATE 5 MG TABLET (FP) ONE (09:58)
[2023-03-01] MEDS ORDERED: LIDOCAINE 4% PATCH TP ONE (09:58)
[2023-03-01] MEDS ORDERED: LISINOPRIL 20 MG TABLET ONE (09:58)
[2023-03-01] MEDS ORDERED: ENOXAPARIN NA (PORCINE) 40 MG/0.4 ML DISP.SYRIN SQ ONE (09:59)
[2023-03-01] MEDS ORDERED: amLODIPine BESYLATE 5 MG TABLET (FP) PO SCH (10:00)
[2023-03-01] MEDS ORDERED: PANTOPRAZOLE SODIUM 40 MG VIAL IVPUSH SCH (10:00)
[2023-03-01] MEDS: ENOXAPARIN NA (PORCINE) 40 MG/0.4 ML DISP.SYRIN SQ SCH (10:10)
[2023-03-01] MEDS: LIDOCAINE 4% PATCH TP SCH (10:10)
[2023-03-01] MEDS: ASPIRIN COATED 81 MG TABLET.EC PO SCH (10:10)
[2023-03-01] MEDS: PANTOPRAZOLE 40 MG TABLET PO SCH (10:11)
[2023-03-01] MEDS: LISINOPRIL 20 MG TABLET PO SCH (10:11)
[2023-03-01 17:49] VITALS: BMI 31.8
[2023-03-01] MEDS ORDERED: ATORVASTATIN CA 80 MG TABLET (FP) PO SCH (22:00)
[2023-03-01] MEDS ORDERED: LIDOCAINE PATCH REMOVAL MC SCH (22:00)
[2023-03-02 07:18] LABS: BASO % 0.6 % (0-2.0); EOS % 9.8 % (0-4.5); HEMATOCRIT 39.6 % (35.4-49); HEMOGLOBIN 13.4 GM/dL (11.7-16.9); LYMPH % 51.5 % (8-40); MCH 30.1 pg (25.7-33.7); MCHC 33.8 g/dl (32.0-35.9); MEAN PLT VOLUME 8.2 fl (7.5-11.1); MONO % 7.5 % (3.8-10.2); NEUT % 30.6 % (42.8-82.8); PLATELET COUNT 215 10^3/uL (134-434); RBC 4.45 M/mm3 (4.00-5.60); WHITE BLOOD COUNT 5.5 K/mm3 (4.0-10.0)
[2023-03-02 07:37] LABS: ALBUMIN 3.1 g/dl (3.4-5.0); BLOOD UREA NITROGEN 10.3 mg/dL (7-18); PHOSPHOROUS 3.3 mg/dL (2.5-4.9)
[2023-03-02 07:38] LABS: TOT PROT 6.4 g/dl (6.4-8.2)
[2023-03-02 07:39] LABS: BILIRUBIN,TOTAL 0.6 mg/dL (0.2-1); CALCIUM 9.2 mg/dL (8.5-10.1)
[2023-03-02 07:40] LABS: CREATININE 0.9 mg/dL (0.55-1.3); MAGNESIUM 2.2 mg/dL (1.8-2.4)
[2023-03-02] MEDS ORDERED: amLODIPine BESYLATE 2.5 MG TABLET (FP) PO SCH (08:17)
[2023-03-02] MEDS: PANTOPRAZOLE 40 MG TABLET PO SCH (09:07)
[2023-03-02] MEDS: ENOXAPARIN NA (PORCINE) 40 MG/0.4 ML DISP.SYRIN SQ SCH (09:42)
[2023-03-02] MEDS: LIDOCAINE 4% PATCH TP SCH (09:42)
[2023-03-02] MEDS: ASPIRIN COATED 81 MG TABLET.EC PO SCH (09:43)
[2023-03-02] MEDS: LISINOPRIL 20 MG TABLET PO SCH (09:43)
[2023-03-02] MEDS ORDERED: ISOSORBIDE MONONITRATE 30 MG TAB.SR.24H (FP) PO SCH (10:00)
[2023-03-02 17:09] VITALS: BP 132/81; PULSE 52; RESP 20; TEMP 98.1
== END 2023-03-02 15:55 | disposition home or self-care (01) ==
LOC: JER 00:21 → JERBED 02:36 → J4W 17:36
PROVIDERS: ADMIT Internal Medicine; ATTEND Internal Medicine
PROC: 3E033NZ Introduction of Analgesics, Hypnotics, Sedatives into Peripheral Vein, Percutaneous Approach (ICD-10-PCS; principal; 2023-03-01)
PROC: 3E023GC Introduction of Other Therapeutic Substance into Muscle, Percutaneous Approach (ICD-10-PCS; 2023-03-01)
DX: R07.9 Chest pain, unspecified (principal); I11.0 Hypertensive heart disease with heart failure; I25.2 Old myocardial infarction; Z95.1 Presence of aortocoronary bypass graft; E78.00 Pure hypercholesterolemia, unspecified; K21.9 Gastro-esophageal reflux disease without esophagitis; I25.10 Atherosclerotic heart disease of native coronary artery without angina pectoris; R77.8 Other specified abnormalities of plasma proteins; Z87.891 Personal history of nicotine dependence
CPT/HCPCS: 0241U-QW; 36415; 71046-TC-FY; 71275-TC; 80053; 82550; 83690; 83735; 83880; 84100; 84484; 85025; 85610; 85730; 93005; 93010; 94010; 96365; 96372; 96375; 99285-25; G0378

== ENCOUNTER 2023-08-31 23:49 | Observation (INO) | payer OTHER ==
[2023-09-01] MEDS: ACETAMINOPHEN 1000 MG/100 ML BAG IVPB ONE (02:12)
[2023-09-01] MEDS ORDERED: FAMOTIDINE 20 MG/50 ML IVPB 20 MG/50 ML MG IVPB ONE (03:08)
[2023-09-01] MEDS: FAMOTIDINE 20 MG/50 ML IVPB 20 MG/50 ML MG IVPB ONE (03:15)
[2023-09-01 03:29] LABS: BASO % 0.9 % (0-2.0); EOS % 11.1 % (0-4.5); HEMATOCRIT 42.9 % (35.4-49); HEMOGLOBIN 14.4 GM/dL (11.7-16.9); MCH 30.3 pg (25.7-33.7); MCHC 33.6 g/dl (32.0-35.9); MEAN CELL VOLUME 90.1 fl (80-96); MONO % 6.2 % (3.8-10.2); NEUT % 31.8 % (42.8-82.8); PLATELET COUNT 228 10^3/uL (134-434); RBC 4.76 M/mm3 (4.00-5.60); RDW 14.5 % (11.9-15.9)
[2023-09-01 03:50] LABS: POTASSIUM 4.2 mmol/L (3.5-5.1)
[2023-09-01 03:52] LABS: ALBUMIN 3.4 g/dl (3.4-5.0); BLOOD UREA NITROGEN 12.9 mg/dL (7-18); CALCIUM 9.3 mg/dL (8.5-10.1)
[2023-09-01 03:55] LABS: CREATININE 1.1 mg/dL (0.55-1.3)
[2023-09-01 03:57] LABS: BILIRUBIN,TOTAL 1.2 mg/dL (0.2-1); TOT PROT 6.8 g/dl (6.4-8.2)
[2023-09-01 07:05] VITALS: RESP 16
[2023-09-01 07:44] VITALS: BMI 31.7
[2023-09-01] MEDS: ASPIRIN COATED 81 MG TABLET.EC PO SCH (09:44)
[2023-09-01] MEDS: LISINOPRIL 20 MG TABLET PO SCH (09:44)
[2023-09-01] MEDS: amLODIPine BESYLATE 5 MG TABLET (FP) PO SCH (09:44)
[2023-09-01] MEDS: PANTOPRAZOLE 40 MG TABLET PO SCH (09:44)
[2023-09-01] MEDS: ENOXAPARIN NA (PORCINE) 40 MG/0.4 ML DISP.SYRIN SQ SCH (09:44)
[2023-09-01 14:38] VITALS: BP 133/78; PULSE 66; TEMP 97.9
[2023-09-01] MEDS ORDERED: ATORVASTATIN CA 40 MG TABLET (FP) PO SCH (22:00)
== END 2023-09-01 19:53 | disposition home or self-care (01) ==
LOC: JER 23:49 → JERBED 09-01 06:00 → J4S 09-01 07:35
PROVIDERS: ADMIT Internal Medicine; ATTEND Internal Medicine
PROC: 3E033NZ Introduction of Analgesics, Hypnotics, Sedatives into Peripheral Vein, Percutaneous Approach (ICD-10-PCS; principal; 2023-09-01)
PROC: 3E033GC Introduction of Other Therapeutic Substance into Peripheral Vein, Percutaneous Approach (ICD-10-PCS; 2023-09-01)
DX: R07.89 Other chest pain (principal); K21.9 Gastro-esophageal reflux disease without esophagitis; R79.89 Other specified abnormal findings of blood chemistry; I25.10 Atherosclerotic heart disease of native coronary artery without angina pectoris; I11.9 Hypertensive heart disease without heart failure; E78.5 Hyperlipidemia, unspecified; Z87.891 Personal history of nicotine dependence; Z95.5 Presence of coronary angioplasty implant and graft
CPT/HCPCS: 0241U-QW; 36415; 71045-TC-FY; 80053; 84484; 85025; 93005; 93010; 96365; 96375; 99285-25; G0378; J0131

== ENCOUNTER 2023-09-17 09:38 | Observation (INO) | payer OTHER ==
[2023-09-17] MEDS ORDERED: ALBUTEROL SO4 2.5/IPRATROPIUM 0.5 INH SOL 3 ML VIAL.NEB. NEB ONE ×3 (10:03→10:58)
[2023-09-17] MEDS: ALBUTEROL SO4 2.5/IPRATROPIUM 0.5 INH SOL 3 ML VIAL.NEB. NEB SCH (10:11)
[2023-09-17] MEDS ORDERED: methylPREDNISolone NA SUCC 125 MG/2 ML VIAL ONE (10:46)
[2023-09-17] MEDS: methylPREDNISolone NA SUCC 125 MG/2 ML VIAL IVPUSH ONE (10:54)
[2023-09-17] MEDS: ACETAMINOPHEN 1000 MG/100 ML BAG IVPB ONE (10:54)
[2023-09-17 10:56] LABS: HEMATOCRIT 44.1 % (35.4-49); HEMOGLOBIN 15.2 GM/dL (11.7-16.9); MCHC 34.5 g/dl (32.0-35.9); MEAN CELL VOLUME 90.1 fl (80-96); MEAN PLT VOLUME 7.6 fl (7.5-11.1); PLATELET COUNT 221 10^3/uL (134-434); RDW 14.1 % (11.9-15.9); WHITE BLOOD COUNT 6.1 K/mm3 (4.0-10.0)
[2023-09-17] MEDS ORDERED: ACETAMINOPHEN INJECTION 100 ML IVPB ONE (10:58)
[2023-09-17 11:04] LABS: INR 1.01 (0.83-1.09); PROTHROMBIN TIME (PATIENT) 11.4 SEC (9.7-13.0)
[2023-09-17 11:23] LABS: POTASSIUM 4.3 mmol/L (3.5-5.1)
[2023-09-17 11:26] LABS: ALBUMIN 3.8 g/dl (3.4-5.0); BLOOD UREA NITROGEN 12.6 mg/dL (7-18); CALCIUM 9.7 mg/dL (8.5-10.1)
[2023-09-17 11:31] LABS: BILIRUBIN,TOTAL 1.8 mg/dL (0.2-1); TOT PROT 7.5 g/dl (6.4-8.2)
[2023-09-17 11:43] LABS: ANISOCYTOSIS 0; MACROCYTOSIS 0
[2023-09-17 18:27] VITALS: BMI 30.9
[2023-09-17] MEDS: ATORVASTATIN CA 40 MG TABLET (FP) PO SCH (21:26)
[2023-09-18 08:45] LABS: BASO % 0.1 % (0-2.0); HEMATOCRIT 40.5 % (35.4-49); HEMOGLOBIN 13.9 GM/dL (11.7-16.9); LYMPH % 13.5 % (8-40); MCHC 34.3 g/dl (32.0-35.9); MEAN CELL VOLUME 90.5 fl (80-96); MONO % 3.2 % (3.8-10.2); NEUT % 83.2 % (42.8-82.8); PLATELET COUNT 218 10^3/uL (134-434); RBC 4.48 M/mm3 (4.00-5.60); RDW 14.2 % (11.9-15.9); WHITE BLOOD COUNT 8.8 K/mm3 (4.0-10.0)
[2023-09-18 08:55] LABS: POTASSIUM 4.5 mmol/L (3.5-5.1)
[2023-09-18 09:08] LABS: PHOSPHOROUS 2.8 mg/dL (2.5-4.9)
[2023-09-18 09:09] LABS: BILIRUBIN,TOTAL 1.2 mg/dL (0.2-1); TOT PROT 6.8 g/dl (6.4-8.2)
[2023-09-18 09:12] LABS: ALBUMIN 3.4 g/dl (3.4-5.0); CALCIUM 9.3 mg/dL (8.5-10.1); CREATININE 0.9 mg/dL (0.55-1.3)
[2023-09-18 09:13] LABS: BLOOD UREA NITROGEN 13.9 mg/dL (7-18); MAGNESIUM 2.3 mg/dL (1.8-2.4)
[2023-09-18] MEDS: LISINOPRIL 20 MG TABLET PO SCH (11:11)
[2023-09-18] MEDS: ENOXAPARIN NA (PORCINE) 40 MG/0.4 ML DISP.SYRIN SQ SCH (11:11)
[2023-09-18] MEDS: amLODIPine BESYLATE 5 MG TABLET (FP) PO SCH (11:12)
[2023-09-18] MEDS: PANTOPRAZOLE 40 MG TABLET PO SCH (11:12)
[2023-09-18] MEDS: ASPIRIN COATED 81 MG TABLET.EC PO SCH (11:12)
[2023-09-18 15:24] VITALS: BP 117/69; PULSE 59; RESP 18; TEMP 98.1
== END 2023-09-18 17:36 | disposition home or self-care (01) ==
LOC: JER 09:38 → JERBED 15:09 → J4W 17:55
PROVIDERS: ADMIT Internal Medicine; ATTEND Internal Medicine
PROC: 3E033NZ Introduction of Analgesics, Hypnotics, Sedatives into Peripheral Vein, Percutaneous Approach (ICD-10-PCS; principal; 2023-09-17)
PROC: 3E0F7GC Introduction of Other Therapeutic Substance into Respiratory Tract, Via Natural or Artificial Opening (ICD-10-PCS; 2023-09-17)
PROC: 3E023GC Introduction of Other Therapeutic Substance into Muscle, Percutaneous Approach (ICD-10-PCS; 2023-09-17)
PROC: 3E033GC Introduction of Other Therapeutic Substance into Peripheral Vein, Percutaneous Approach (ICD-10-PCS; 2023-09-17)
DX: I25.110 Atherosclerotic heart disease of native coronary artery with unstable angina pectoris (principal); J20.9 Acute bronchitis, unspecified; F12.90 Cannabis use, unspecified, uncomplicated; F10.99 Alcohol use, unspecified with unspecified alcohol-induced disorder; R00.1 Bradycardia, unspecified; R79.89 Other specified abnormal findings of blood chemistry; I25.2 Old myocardial infarction; Z95.5 Presence of coronary angioplasty implant and graft; I11.9 Hypertensive heart disease without heart failure; E78.5 Hyperlipidemia, unspecified; Z87.891 Personal history of nicotine dependence
CPT/HCPCS: 0241U-QW; 36415; 71045-TC-FY; 80053; 82248; 83735; 84100; 84484; 85025; 85379; 85610; 85730; 93005; 93010; 94640; 96372; 96374; 96375; 99285-25; G0378; J0131